=== PATIENT | male | born 1955 | race Caucasian/White ===

== ENCOUNTER 2024-03-20 12:55 | Emergency (ER) | payer MEDICARE, OTHER, SELFPAY ==
[2024-03-20 12:57] VITALS: BP 158/83
--- NOTE | 2024-03-20 13:38 | ED.GENMED ---
History of Present Illness
General
Chief Complaint: Musculo-Skeletal Complaint
Time Seen by Provider: 03/20/24 13:24
History of Present Illness
History of Present Illness:
68-year-old male presents to the emergency department for evaluation of left distal thigh pain, slipped [place]. He is unable to raise the left leg and unable to bear weight. Denies head strike or low back pain.
Review of Systems
Review of Systems
Allergies reviewed?: Yes
All Other Systems: ROS reviewed and negative except as documented in HPI and ROS
Phy Exam
Physical Exam
Physical Exam:
GEN: Well appearing, NAD, WDWN
HEENT: Oral mucosa moist, no scleral icterus
Cardiac: Regular rate
Lung: No respiratory distress, no tachypnea
MSK: Distal quadriceps sulcus deformity consistent with quadriceps muscle/tendon rupture. Unable to perform straight leg raise, no gross hematoma or ecchymosis
Skin: Good color, no pallor or jaundice, no rashes
Neuro: AO x3, moves all extremities freely
Psych: Calm, cooperative
Course
Orders/Labs/Results
Orders:
Orders
03/20/24 12:59
Femur, Left 2 View [CR Femur - Left Min 2 Vw] Urgent
Comment:
Reason For Exam: pain, fall
03/20/24 13:38
Crutches-Treatment ONCE
Knee Immobilizer Left-Treatmen ONCE
Vital Signs
Initial and Last Documented VS:
Initial Vital Signs
Temp Pulse Resp BP Pulse Ox
98.4 F 64 19 158/83 98
03/20/24 12:57 03/20/24 12:57 03/20/24 12:57 03/20/24 12:57 03/20/24 12:57
Last Documented Vital Signs
Temp Pulse Resp BP Pulse Ox
98.4 F 70 18 158/83 99
03/20/24 12:57 03/20/24 14:23 03/20/24 14:23 03/20/24 12:57 03/20/24 14:23
MDM/Problems Addressed
MDM/Problems Addressed:
Imaging reveals no acute bony pathology, exam concerning for quadricep tendon rupture. Placed in knee immobilizer with crutches, advised weightbearing as tolerated provided that he is in the knee immobilizer and outpatient orthopedic follow-up
*Critical Care Note
Total Time (30-74mins, 75-104mins- exclusive of procedures): Not Applicable
ED Attending Note
-
Portions of this chart may have been created with voice recognition software.� Occasional wrong word or��sound alike� substitutions may have occurred due to the inherent limitations of voice recognition software.
Discharge Plan
Departure
Patient Disposition: Home (Routine Discharge)
Date of Disposition: 03/20/24
Time of Disposition: 13:38
Patient with high blood pressure during this ER visit?: No
Discharge Problem:
Quadriceps tendon rupture
Instructions: Quadriceps and Patellar Tendon Injuries
Referrals:
Daryl Ndiaye MD [Active] -
Activity Restrictions/Additional Instructions:
No weight bearing unless the knee immobilizer is on
Contact [facility] for follow up
You may remove the immobilizer when the leg is resting in a straight position in order to ice
Interventions
Interventions:
*Risk Screen - Suicide Last Done: 03/20/24 14:20
*General Assessment Last Done: 03/20/24 14:20
*Neglect/Abuse Screening Last Done: 03/20/24 14:20
*Nursing Disposition Last Done: 03/20/24 14:24
ED-Musculoskeletal Assessment Last Done: 03/20/24 14:20
Discharge Date and Time
Discharge Date/Time: 03/20/24 14:25
Print Language: SLOVAK
== END 2024-03-20 14:25 | disposition home or self-care (01) ==
LOC: EMR 12:55
PROVIDERS: EMERGENCY PHYSICIAN Emergency Medicine; FAMILY PHYSICIAN Family Medicine
DX: S76.112A Strain of left quadriceps muscle, fascia and tendon, initial encounter (principal); W01.0XXA Fall on same level from slipping, tripping and stumbling without subsequent striking against object, initial encounter
CPT/HCPCS: 99283; 29505; 73552